=== PATIENT | female | born 1980 | race African-American/Black ===

== ENCOUNTER 2016-04-25 12:52 | Emergency (ER) | payer OTHER ==
[~2016-04-25] VITALS: Ht 157.5 cm; Wt 55.3 kg
[2016-04-25] MEDS ORDERED: GABAPENTIN100 MG ORAL (13:01)
[2016-04-25] MEDS ORDERED: PERCOCET 10-321 EACH ORAL (13:01)
[2016-04-25] MEDS ORDERED: Mylanta II UD 30ml ORAL ONE (13:30)
[2016-04-25] MEDS ORDERED: Dicyclomine HCl 10mg/5ml oral soln ORAL ONE (13:30)
[2016-04-25] MEDS ORDERED: Lidocaine 2% Visc 15ml soln ORAL ONE (13:30)
[2016-04-25] MEDS ORDERED: Hydromorphone 0.5mg/0.5ml inj IVP ONE (13:30)
[2016-04-25 13:54] LABS: APPEARANCE,URINE CLEAR; KETONES,URINE 4+ (NEGATIVE); LEUKOCYTE ESTERASE ,URINE NEGATIVE (NEGATIVE); NITRITE,URINE NEGATIVE (NEGATIVE); PH,URINE 6 (4.5-8.0); PROTEIN,URINE 2+ (NEGATIVE); UROBILINOGEN,URINE NORMAL MG/DL (0.0-1.0)
[2016-04-25 13:58] LABS: BASOPHILS % (AUTO) 0.5 % (0.0-2.0); EOSINOPHILS % (AUTO) 0.5 % (0.0-3.0); LYMPHOCYTES % (AUTO) 14.7 % (20.0-45.0); MEAN CORPUSCULAR HGB CONC 31.8 G/DL (32.0-36.0); MEAN CORPUSCULAR VOLUME 104 FL (80-99); MEAN PLATELET VOLUME 8.5 FL (6.5-10.1); MONOCYTES % (AUTO) 8.1 % (1.0-10.0); NEUTROPHILS % (AUTO) 76.2 % (45.0-75.0); PLATELET COUNT 178 K/UL (150-450); RED BLOOD COUNT 4.41 M/UL (4.20-5.40); RED CELL DISTRIBUTION WIDTH 13.2 % (11.6-14.8); WHITE BLOOD COUNT 5.9 K/UL (4.8-10.8)
[2016-04-25 14:00] VITALS: BP 159/106
--- NOTE | 2016-04-25 14:04 | Emergency Room Report ---
History of Present Illness General Chief Complaint: General Complaint Source: Patient Present Illness HPI Patient presents with complaint of abdominal pain, nausea and vomiting x2 days. She has not been to this facility before. Vomiting is so say with nausea, nonradiating the back and located in the epigastric area. She has a history of some possible gallbladder disease, was told that she may have passed a gallbladder stone before. She denies sick contacts or changes in diarrhea some travel. She has significant comorbidity with a history of spinal surgeries secondary to treatment for neurogenic bladder and neurogenic bowel. She self caths and also occasionally disimpact herself from a fecal impaction. She reports that she is being followed by neurosurgery for possible revision of surgery, and also has a history of increased heart rate for which she has not been treated. She denies chest discomfort or shortness of breath at this time. No fevers or chills have been noted except for diaphoresis and some chills during the vomiting which passes. Patient had a spinal fracture, coccyx bleeding to disc compression, cauda equina syndrome. This was treated in 2004 and she also has a spinal fusion was performed in [place] prior to returning to [place]. Patient is been followed by numerous specialists but she's not from a result of their names. Allergies: Coded Allergies: No Known Allergies (Unverified , 04/25/16) Patient History Past Medical History: see triage record Past Surgical History: other - spinal surgery Social History: Denies: alcohol use, drug use, smoking Now: No Immunizations: UTD Reviewed Nursing Documentation: PMH: Agreed Nursing Documentation-PMH Past Medical History: No History, Except For Hx Cardiac Problems: No - CHRONIC BACK PAIN Review of Systems Constitutional: Reports: chills, sweats, Denies: malaise, weakness Eye: Denies: double vision ENT: Denies: ear discharge Respiratory: Denies: orthopnea Cardiovascular: Denies: chest pain Gastrointestinal: Reports: abdominal pain, constipation, nausea, vomiting Musculoskeletal: Reports: back pain, Denies: joint swelling Skin: Denies: change in hair/nails Psychiatric: Denies: anxiety Neurological: Reports: focal weakness, Denies: headache, numbness Physical Exam Vital Signs Date Time Temp Pulse Resp B/P Pulse Ox O2 Delivery O2 Flow Rate FiO2 04/25/16 12:57 97.9 110 20 143/99 100 Room Air Sp02 EP Interpretation: reviewed, abnormal - tachy General Appearance: alert, GCS 15, moderate distress - vomiting, thin Eyes: bilateral eye PERRL ENT: dry mucus membranes, other Neck: supple Respiratory: chest non-tender, lungs clear, normal breath sounds, no rhonchi, no respiratory distress Cardiovascular #1: no JVD, tachycardia Cardiovascular #2: 2+ carotid (R), 2+ carotid (L), 2+ dorsalis pedis (R), 2+ dorsalis pedis (L) Gastrointestinal: non-distended, no guarding Musculoskeletal: decreased range of motion - extension of the back causes pain , urgical scar in the lumbosacral region Neurologic: alert, oriented x3, responsive, 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 Treated with IV fluids, antibiotics and appears to be responding initially. Heart rate is chronically elevated per the patient has diminished from 120 to approximately 110 on my reevaluation. Abdomen is soft and nondistended. At this time most blood work is available for review and does demonstrate no sign of biliary disorder or pancreatitis. Urinalysis is pending but shows positive ketones and no leuk esterase at this time. CAT scan of the abdomen was ordered as the patient is a very difficult historian as multiple comorbidities. Patient be signed out to to follow final CT examination read as well as reevaluation. The patient remains feeling better and is able to tolerate fluids she may be safe for home with followup with primary care. Laboratory Tests Test 04/25/16 13:45 White Blood Count 5.9 K/UL (4.8-10.8) Red Blood Count 4.41 M/UL (4.20-5.40) Hemoglobin 14.5 G/DL (12.0-16.0) Hematocrit 45.8 % (37.0-47.0) Mean Corpuscular Volume 104 FL (80-99) H Mean Corpuscular Hemoglobin 33.0 PG (27.0-31.0) H Mean Corpuscular Hemoglobin Concent 31.8 G/DL (32.0-36.0) L Red Cell Distribution Width 13.2 % (11.6-14.8) Platelet Count 178 K/UL (150-450) Mean Platelet Volume 8.5 FL (6.5-10.1) Neutrophils (%) (Auto) 76.2 % (45.0-75.0) H Lymphocytes (%) (Auto) 14.7 % (20.0-45.0) L Monocytes (%) (Auto) 8.1 % (1.0-10.0) Eosinophils (%) (Auto) 0.5 % (0.0-3.0) Basophils (%) (Auto) 0.5 % (0.0-2.0) Urine Color Pale yellow Urine Appearance Clear Urine pH 6 (4.5-8.0) Urine Specific [place] 1.020 (1.005-1.035) Urine Protein 2+ (NEGATIVE) H Urine Glucose (UA) Negative (NEGATIVE) Urine Ketones 4+ (NEGATIVE) H Urine Occult Blood Negative (NEGATIVE) Urine Nitrite Negative (NEGATIVE) Urine Bilirubin Negative (NEGATIVE) Urine Urobilinogen Normal MG/DL (0.0-1.0) Urine Leukocyte Esterase Negative (NEGATIVE) Urine RBC 0-2 /HPF (0 - 2) Urine WBC 0-2 /HPF (0 - 2) Urine Squamous Epithelial Cells Few /LPF (NONE/OCC) Urine Bacteria Few /HPF (NONE) Urine HCG, Qualitative Negative Sodium Level 133 mEQ/L (135-145) L Potassium Level 4.0 mEQ/L (3.4-4.9) Chloride Level 87 mEQ/L (98-107) L Carbon Dioxide Level 15 mEQ/L (20-30) L Anion Gap 31 (5-15) H Blood Urea Nitrogen 9 mg/dL (7-23) Creatinine 0.6 mg/dL (0.5-0.9) Estimat Glomerular Filtration Rate > 60 mL/min (>60) Glucose Level 71 mg/dL (74-106) L Calcium Level 10.1 mg/dL (8.6-10.2) Total Bilirubin 0.6 mg/dL (0.0-1.2) Aspartate Amino Transf (AST/SGOT) 36 U/L (5-40) Alanine Aminotransferase (ALT/SGPT) 24 U/L (3-33) Alkaline Phosphatase 103 U/L (35-104) Total Protein 9.2 g/dL (6.6-8.7) H Albumin 5.0 g/dL (3.5-5.2) Globulin 4.2 g/dL Albumin/Globulin Ratio 1.1 (1.0-2.7) Amylase Level 138 U/L (10-110) H Lipase 44 U/L (< 60) Rhythm Strip Diag. Results Rhythm Strip Time: 14:28 EP Interpretation: yes Rate: 123 Rhythm: no PVC's, no ectopy, other - sinus tach CT/MRI/US Diagnostic Results CT/MRI/US Diagnostic Results : Imaging Test Ordered: CT abdomen and pelvis with contrast pending Reevaluation Time: 14:29 Last Vital Signs Date Time Temp Pulse Resp B/P Pulse Ox O2 Delivery O2 Flow Rate FiO2 04/25/16 12:57 97.9 110 20 143/99 100 Room Air Status: improved Referrals: [facility]ERR[facility] (PCP) Rafael Jaramillo MD Apr 25, 2016 14:04
[2016-04-25 14:05] LABS: BACTERIA,URINE FEW /HPF; RBC,URINE 0-2 /HPF (0 - 2); SQUAMOUS EPITHELIAL CELL,UR FEW /LPF (NONE/OCC); WBC,URINE 0-2 /HPF (0 - 2)
[2016-04-25 14:11] LABS: ALANINE AMINOTRANSFERASE 24 U/L (3-33); ALBUMIN/GLOBULIN RATIO 1.1 (1.0-2.7); AMYLASE 138 U/L (10-110); ANION GAP 31 (5-15); ASPARTATE AMINO TRANSFERASE 36 U/L (5-40); CALCIUM 10.1 mg/dL (8.6-10.2); CARBON DIOXIDE 15 mEQ/L (20-30); CHLORIDE 87 mEQ/L (98-107); CREATININE 0.6 mg/dL (0.5-0.9); GLOMERULAR FILTRATION RATE > 60 mL/min (>60); HEMOLYSIS 32; LIPASE 44 U/L (< 60); SODIUM 133 mEQ/L (135-145); TOTAL PROTEIN 9.2 g/dL (6.6-8.7)
[2016-04-25] MEDS ORDERED: PEPCID40 MG PO (16:23)
[2016-04-25] MEDS ORDERED: ZOFRAN ODT4 MG ORAL (16:23)
[2016-04-25] MEDS ORDERED: Ketorolac 30mg Inj IV ONE (16:30)
[2016-04-25 16:44] VITALS: BP_SYST 148; BP_SYST 159; BP_DIAS 106; BP_DIAS 85
--- NOTE | 2016-04-26 08:45 | Diagnostic Imaging Report ---
Indications: Kyle pain and vomiting Technique: Continuous helical CT imaging of the abdomen and pelvis was performed with automatic exposure control following administration of nonionic IV contrast only, on a Siemens sensation [address] scanner. Axial, coronal, sagittal images were reconstructed at 5 mm slice thickness. No oral contrast was administered per requesting physician's order, despite no contraindications listed in either submitted clinical data or tech note.. CTDI volume(s): 13 mGy Total DLP: 648 mGy-cm Findings: Comparison: None Lack of oral contrast limits evaluation of gastrointestinal tract, nondilated throughout. Mural thickening of gastric antral pyloric region not excludable. Appendix questionably identified without obvious acute abnormality. No obvious mural thickening, adjacent stranding, extraluminal gas or fluid collections identified. Liver parenchyma diffusely decreased attenuation, focally more so in segment IVb adjacent to left intersegmental fissure. Common bile duct mildly distended, maximum diameter 9 mm. No obvious associated stone or mass identified. Urinary bladder underdistended. Mural thickening not excludable. Gallbladder, pancreas, spleen, adrenal glands, kidneys, unopacified ureters, uterus, bilateral adnexal regions, vascular structures, retroperitoneum, mesentery, remainder visualized abdominopelvic anatomy unremarkable. Lung bases and adjacent pleural surfaces clear. Compression fracture superior endplates L1 and L3 vertebral bodies. Disc space narrowing with marginal osteophyte formation and vacuum phenomenon in overlying intervertebral disc spaces. Lumbarization of S1 vertebra. Chronic appearing contour deformity S2 vertebral body. Laminectomy defects and bilateral pedicle screws L5-S2, screws surrounded by abnormal lucency. Additional fusion hardware in the ilium and sacrum bilaterally. Impression: No evidence of acute abdominopelvic disease, with limitation as described. Subtle but potentially significant abnormalities the gastrointestinal tract not limited to the distal stomach, may be missed. Repeat CT scan with full oral and IV contrast preparation recommended for more complete evaluation, as clinically indicated Hepatic steatosis. Focal area of even lower attenuation in left hepatic lobe likely focal fatty infiltration. Ultrasound correlation suggested. Mild distention of common bile duct without obvious obstructive etiology. Correlate clinically. Apparent mild mural thickening of urinary bladder--underdistention versus hypertrophy versus cystitis Previous vertebral and sacral fractures, status post lumbar laminectomies, lumbosacral and bilateral sacroiliac posterior fusions. Suggestion of pedicle screw loosening L5-S2. This may be a source of pain. Spinal surgery consultation recommended. Degenerative disc disease Transitional vertebra This correlates with [facility] preliminary report.
== END 2016-04-25 17:03 | disposition home or self-care (01) ==
LOC: EMR 13:40
DX: R11.2 Nausea with vomiting, unspecified (principal); R10.13 Epigastric pain; N31.9 Neuromuscular dysfunction of bladder, unspecified; K76.0 Fatty (change of) liver, not elsewhere classified; Z98.890 Other specified postprocedural states
CPT/HCPCS: 36415; 74177; 80053; 81003; 81025; 82150; 83690; 85025; 96361; 96374; 96375; 99284; J1170; J1885; J2405; Q9967

== ENCOUNTER 2017-10-28 12:23 | Outpatient (CLI) | payer MEDICARE, OTHER ==
--- NOTE | 2017-10-28 11:33 | Diagnostic Imaging Report ---
Clinical Indication: Cough, history of pneumonia Technique: Spiral acquisition obtained through the chest. No IV contrast utilized, per high resolution protocol. Axial 5 x 5 mm slices were reconstructed. Axial 1 mm thick slices were reconstructed using high resolution algorithm at 10 mm intervals. Multiplanar reconstructions generated. Total dose length product 752.32 mGycm. CTDIvol(s) 23.8 mGy. Dose reduction achieved using automated exposure control Comparison: none Findings: Areas of atelectasis or scarring are seen in the lingula and inferior left lower lobe. Scattered areas of atelectasis and scarring are also seen in the right lower lobe and in the medial right middle lobe. No infiltrates, effusions, nodules, or masses are demonstrated. High-resolution images demonstrate subtle diffuse areas of groundglass opacity. No definite interstitial septal thickening, bronchiectasis, bronchial wall thickening, nodularity, or honeycombing demonstrated. The heart size is normal. No pericardial effusion. No mediastinal or hilar mass or adenopathy. The thyroid demonstrated is nonvisualization of the left thyroid lobe. No axillary or chest wall mass or adenopathy. Bones demonstrate bilateral old healed rib fracture deformities. There is an compression fracture deformity of the L1 vertebral body, age of which is indeterminate. The included upper abdominal anatomy demonstrates nonobstructive punctate calculi within the right kidney Impression: Bilateral areas of scarring and/or atelectasis as described above High-resolution images demonstrate faint subtle and somewhat questionable generalized areas of groundglass opacity. Differential for this if real is very broad, includes pulmonary edema, as well as numerous inflammatory etiologies Generalized interstitial disease is not demonstrated otherwise L1 vertebral body compression fracture, age indeterminate. Consider MRI for better characterization if clinically relevant Nonvisualized left thyroid lobe, developmental versus postsurgical Nonobstructive right renal calculi The CT scanner at [facility] is accredited by the [employer] and the scans are performed using protocols designed to limit radiation exposure to as low as reasonably achievable to attain images of sufficient resolution adequate for diagnostic evaluation.
[~2017-10-28 12:23] MED LIST: GABAPENTIN100 MG ORAL; PEPCID40 MG PO; PERCOCET 10-321 EACH ORAL; ZOFRAN ODT4 MG ORAL
== END 2017-10-28 14:23 | disposition home or self-care (01) ==
LOC: CAT 12:23
DX: R05 Cough (principal); J45.909 Unspecified asthma, uncomplicated
CPT/HCPCS: 71250